=== PATIENT | male | born 1965 | race Caucasian/White ===

== ENCOUNTER 2016-10-27 11:14 | Emergency (ER) | payer OTHER ==
[2016-10-27 11:28] VITALS: BP 134/85; PULSE 70; RESP 18; TEMP 98.7; O2SAT 99; BMI 23.7
--- NOTE | 2016-10-27 11:49 | ED PDOC ---
HPI: Skin/Bite Injury Time Seen by Provider: 10/27/16 11:34 Chief Complaint (Nursing): Abnormal Skin Integrity Chief Complaint (Provider): Abnormal Skin Integrity History Per: Patient History/Exam Limitations: no limitations Onset/Duration Of Symptoms: Hrs Current Symptoms Are (Timing): Still Present Location Of Injury: Right: Arm, Face, Hand, Left: Arm, Face, Hand Quality Of Symptoms: Itching Severity: Mild Additional Complaint(s): Patient is a 51 year old male who presents to ED for an itchy red rash that he developed yesterday. Patient states he was doing yard work where he was possibly exposed to poison henrry, several hours later the itch red rash developed on his hands and arms. The rash later traveled to his face and groin where he believed he may have touched .Notes that a friend of his is a nurse and started him on Calamine lotion as well as PO Benadryl. Of note, patient states he has had poison henrry in the past. Past Medical History Reviewed: Historical Data, Nursing Documentation, Vital Signs Vital Signs: Last Vital Signs Temp 98.7 F 10/27/16 11:27 Pulse 70 10/27/16 11:27 Resp 18 10/27/16 11:27 BP 134/85 10/27/16 11:27 Pulse Ox 99 10/27/16 11:27 - Medical History PMH: HTN, Hypercholesterolemia - Surgical History Surgical History: No Surg Hx - Family History Family History: States: No Known Family Hx - Living Arrangements Living Arrangements: With Family - Home Medications Home Medications: Ambulatory Orders Medication Instructions Recorded DiphenhydrAMINE [Benadryl] 25 mg PO Q4H PRN #10 cap 10/27/16 Ranitidine HCl [Zantac 75] 75 mg PO DAILY #14 tablet 10/27/16 predniSONE [predniSONE Tab] 20 mg PO DAILY 12 Days 10/27/16 - Allergies Allergies/Adverse Reactions: Allergies Allergy/AdvReac Type Severity Reaction Status Date / Time latex Allergy RASH Verified 10/27/16 11:40 Penicillins Allergy RASH Verified 10/27/16 11:41 Review of Systems Constitutional: Negative for: Fever Eyes: Negative for: Vision Change ENT: Negative for: Throat Swelling Cardiovascular: Negative for: Chest Pain Respiratory: Negative for: Shortness of Breath Skin: Positive for: Rash Neurological: Negative for: Weakness, Numbness Physical Exam - Reviewed Nursing Documentation Reviewed: Yes Vital Signs Reviewed: Yes - Physical Exam Appears: Positive for: Non-toxic, No Acute Distress Skin: Positive for: Normal Color, Warm, Rash (Calamine lotion to hands and arms with dermatitis/urticarial lesions. ) Eye Exam: Positive for: Normal appearance, PERRL, Periorbital swelling (mild with rash). Negative for: Periorbital tenderness, Conjunctival injection, Scleral icterus Neck: Positive for: Normal Cardiovascular/Chest: Positive for: Regular Rate, Rhythm. Negative for: Murmur Respiratory: Positive for: Normal Breath Sounds. Negative for: Respiratory Distress Extremity: Positive for: Normal ROM Neurologic/Psych: Positive for: Alert, Oriented - ECG O2 Sat by Pulse Oximetry: 99 (RA) Pulse Ox Interpretation: Normal Medical Decision Making Medical Decision Making: Time: 1130 Initial impression: Contact dermatitis likely from poison henrry Initial plan: -- Benadryl and Solumedrol Discussed with patient that he will require a prolonged taper of steroids for best efficacy Scribe Attestation: Documented by Yajaira Mason acting as a scribe for Gamal Brennan DO. Scribe Attestation: All medical record entries made by the Scribe were at my direction and personally dictated by me. I have reviewed the chart and agree that the record accurately reflects my personal performance of the history, physical exam, medical decision making, and the department course for this patient. I have also personally directed, reviewed, and agree with the discharge instructions and disposition.
== END 2016-10-27 12:12 | disposition home or self-care (01) ==
LOC: H.ER 11:14
DX: T78.40XA Allergy, unspecified, initial encounter (principal)